=== PATIENT | male | born 1945 | race Caucasian/White ===

== ENCOUNTER 2022-04-26 22:40 | Emergency (ER) | payer MEDICARE ==
[~2022-04-26] VITALS: Ht 177.8 cm; Wt 57.6 kg
[2022-04-26] MEDS ORDERED: DOXYCYCLINE HY100 MG PO (23:08)
[2022-04-26] MEDS ORDERED: CLOTRIMAZOLE15 GM TOP (23:08)
[2022-04-26 23:28] VITALS: BP 142/74
== END 2022-04-27 00:42 | disposition home or self-care (01) ==
LOC: ER 22:48
DX: N48.1 Balanitis (principal); I10 Essential (primary) hypertension; J44.9 Chronic obstructive pulmonary disease, unspecified; F03.90 Unspecified dementia, unspecified severity, without behavioral disturbance, psychotic disturbance, mood disturbance, and anxiety; Z88.6 Allergy status to analgesic agent; Z88.1 Allergy status to other antibiotic agents; Z86.73 Personal history of transient ischemic attack (TIA), and cerebral infarction without residual deficits
CPT/HCPCS: 99282